=== PATIENT | female | born 1960 | race African-American/Black ===

== ENCOUNTER 2016-07-30 14:32 | Observation (INO) | payer OTHER ==
[~2016-07-30] VITALS: Ht 160 cm; Wt 120.8 kg
[~2016-07-30 14:32] MED LIST: ACEON8 MG PO; BENADRYL25 MG PO; DETROL LA4 MG PO; Ecotrin PO; GABAPENTIN300 MG PO; GLUCOPHAGE500 MG PO; LASIX40 MG PO; LEXAPRO10 MG PO; LIPITOR20 MG PO; LOW DOSE ASPIRI81 M1 PO; LYRICA75 MG PO; OMEPRAZOLE20 MG PO; Percocet 5/325,Endoc PO; Protonix PO; ZANTAC75 M1 PO; Zestril,Prinivil PO
[2016-07-30 15:47] LABS: HEMATOCRIT 34.4 % (36.0-46.0); MCH 31.2 PG (29.0-34.0); MCHC 32.6 G/DL (30.0-36.0); MCV 95.8 FL (83-99); MEAN PLAT.VOLUME 9.7 uM^3 (9.5-12.4); PLATELET COUNT 308 K/uL (156-360); RBC DIS.WIDTH-CV 12.9 % (11.8-14.6); RBC DIS.WIDTH-SD 45.8 % (39-53); RED BLOOD COUNT 3.59 M/uL (3.80-5.20); WHITE BLOOD COUNT 6.5 K/uL (4.1-10.2)
[2016-07-30 16:00] LABS: CHLORIDE 106 mEq/L (99-109); POTASSIUM 4.5 mEq/L (3.7-5.4); SODIUM 141 mEq/L (136-147)
[2016-07-30 16:02] LABS: GLUCOSE 91 mg/dL (70-99)
[2016-07-30 16:03] LABS: ANION GAP 12 MEQ/L (2-14)
[2016-07-30 16:06] LABS: GFR ESTIMATE (CALCULATED) > 59 mL/min/; UREA NITROGEN (BUN) 16 mg/dL (9-23)
[2016-07-30 16:10] LABS: TROP-I INTERPRETATION NEGATIVE; TROPONIN-I 0.02 ng/mL (0.0-0.30)
[2016-07-30] MEDS ORDERED: LEXAPRO20 MG PO (17:46)
[2016-07-30 22:33] LABS: TROP-I INTERPRETATION NEGATIVE; TROPONIN-I < 0.01 ng/mL (0.0-0.30)
[2016-07-30 22:41] VITALS: BP 112/56
[2016-07-31 03:03] VITALS: BP 123/59
[2016-07-31 05:05] LABS: HEMATOCRIT 35.8 % (36.0-46.0); MCH 30.9 PG (29.0-34.0); MCHC 32.4 G/DL (30.0-36.0); MCV 95.2 FL (83-99); MEAN PLAT.VOLUME 9.9 uM^3 (9.5-12.4); PLATELET COUNT 301 K/uL (156-360); RBC DIS.WIDTH-SD 45.5 % (39-53); RED BLOOD COUNT 3.76 M/uL (3.80-5.20)
[2016-07-31 05:13] LABS: CHLORIDE 107 mEq/L (99-109); POTASSIUM 4.9 mEq/L (3.7-5.4); SODIUM 139 mEq/L (136-147)
[2016-07-31 05:16] LABS: GLUCOSE 101 mg/dL (70-99)
[2016-07-31 05:17] LABS: ANION GAP 10 MEQ/L (2-14)
[2016-07-31 05:18] LABS: TOTAL BILIRUBIN 0.4 mg/dL (0.0-1.0)
[2016-07-31 05:19] LABS: ALKALINE PHOSPHATASE 85 IU/L (3-129); GFR ESTIMATE (CALCULATED) > 59 mL/min/
[2016-07-31 05:20] LABS: UREA NITROGEN (BUN) 18 mg/dL (9-23)
[2016-07-31 05:29] LABS: TROP-I INTERPRETATION NEGATIVE; TROPONIN-I < 0.01 ng/mL (0.0-0.30)
[2016-07-31 06:13] LABS: HDL CHOLESTEROL 43 MG/DL (Desirable>=50); LDL CHOLESTEROL 87 mg/dL (Desirable<100); NON-HDL CHOLESTEROL 100 mg/dL (Desirable<160); TOTAL CHOLESTEROL 143 mg/dL (Desirable<200); TRIGLYCERIDES 64 MG/DL (Normal: <150)
[2016-07-31 07:20] LABS: Estimated Average Glucose 143 mg/dL (70-123); HEMOGLOBIN A1c (GLYCOHEMOGLOB) 6.6 % HGB (Below 5.7)
[2016-07-31 07:36] VITALS: BP 149/63
[2016-07-31] MEDS ORDERED: LYRICA50 MG PO (10:02)
== END 2016-07-31 10:51 | disposition home or self-care (01) ==
LOC: EME 14:32 → EDOF 20:53 → 5WEST 22:15
PROVIDERS: Emergency Medicine; Internal Medicine
DX: R07.9 Chest pain, unspecified (principal); M79.605 Pain in left leg; I10 Essential (primary) hypertension; E78.5 Hyperlipidemia, unspecified; E66.01 Morbid (severe) obesity due to excess calories; Z68.42 Body mass index [BMI] 45.0-49.9, adult
CPT/HCPCS: 71020; 80048; 80053; 80061; 83036; 84484; 85027; 93005; 93971; 99281; 99285; G0378